=== PATIENT | male | born 1965 | race Asian ===

== ENCOUNTER 2017-12-28 08:18 | Inpatient (IN) | payer OTHER ==
[~2017-12-28] VITALS: Ht 162.6 cm; Wt 79.1 kg
[2017-12-28 08:45] VITALS: BP 132/70
--- NOTE | 2017-12-28 08:45 | NUR ---
MS FARM MANAGEMENT ADVISER NOTE PT ARRIVED TO MS UNIT VIA GURNEY IN STABLE CONDITION ACCOMPANIED BY 2 EMT PERSONNEL. PT IS A/O X4, AFEBRILE. RESPIRATIONS ARE EVEN AND UNLABORED, NOT IN ANY ACUTE DISTRESS NOTED. PUPILS ARE REACTIVE TO LIGHT. BILATERAL HAND CARPET SEWER ARE STRONG AND EQUAL. PT DENIES ANY PAIN AT THIS TIME, NO C/O SOB, N/V NOTED. IV SITE TO LAC INTACT G20, NO INFILTRATION NOTED. DRESSING KEPT CLEAN AND DRY. NO SKIN ISSUES NOTED. ABDOMEN IS TENDER, BOWEL SOUNDS ARE HYPOACTIVE. PT STATED LAST BM WAS YESTERDAY. LAST MEAL WAS LAST NIGHT 1730. PT ABLE TO AMBULATE INDEPENDENTLY. PT SEEN AND EXAMINED BY DR. ROSALES WITH ORDERS NOTED AND CARRIED OUT. INSTRUCTED PT TO USE CALL LIGHT WHEN ASSISTANCE IS NEEDED, CALL LIGHT IS LEFT WITHIN REACH. WILL SAFETY MEASURES ARE IN PLACE. WILL CONTINUE TO MONITOR PT THROUGHOUT SHIFT FOR CONTINUITY OF CARE.
[2017-12-28] MEDS ORDERED: CHOL100044 GT (09:16)
[2017-12-28] MEDS ORDERED: OMEP20TA5 PO (09:16)
[2017-12-28] MEDS ORDERED: ASCO10007 PO (09:16)
[2017-12-28] MEDS ORDERED: OMEG1CAP74 PO (09:16)
[2017-12-28] MEDS ORDERED: LOSA50TA21 PO (09:16)
[2017-12-28] MEDS ORDERED: ACETAMINOPHEN 325 MG TABLET PO PRN (10:30)
[2017-12-28] MEDS ORDERED: MORPHINE SULFATE INJ 2 MG/ML DISP.SYRIN IV PRN (10:30)
[2017-12-28] MEDS ORDERED: ONDANSETRON HCL/PF 4 MG/2 ML VIAL IVP PRN (10:30)
[2017-12-28] MEDS ORDERED: ZOLPIDEM TARTRATE 5 MG TABLET PO PRN (10:30)
[2017-12-28] MEDS ORDERED: Z GUARD REMEDY 2 OZ OINT TP PRN (10:30)
--- NOTE | 2017-12-28 11:13 | NUR ---
RN NOTES PATIENT COMPLAINING OF DIFFICULTY HAVING A BOWL MOVEMENT, OBTAINED ORDER FROM FUR TINTER FOR BISACODYL SUPPOSITORY, PT ABLE TO HAVE A BOWL MOVEMENT AFTER 30 MINUTES.
[2017-12-28 11:26] LABS: BASOPHILS # (AUTO) 0.1 /CMM (0.0-0.2); BASOPHILS % (AUTO) 0.8 % (0.0-2.0); EOSINOPHILS % (AUTO) 2.6 % (0.0-6.0); HEMATOCRIT 42 % (39-51); HEMOGLOBIN 14.2 g/dL (13.5-17.5); LYMPHOCYTES # (AUTO) 3.9 /CMM (0.8-4.8); LYMPHOCYTES % (AUTO) 43.8 % (20.0-44.0); MEAN CORPUSCULAR HGB CONC 34 g/dl (31.0-36.0); MEAN CORPUSCULAR VOLUME 91 fL (80-96); MONOCYTES # (AUTO) 0.7 /CMM (0.1-1.30); MONOCYTES % (AUTO) 8.1 % (2.0-12.0); NEUTROPHILS # (AUTO) 3.9 /CMM (1.8-8.9); NEUTROPHILS % (AUTO) 44.7 % (43.0-81.0); PLATELET COUNT (AUTO) 213 /CMM (150-450); RED BLOOD CELL COUNT(AUTO) 4.66 MIL/uL (4.5-6.0); WHITE BLOOD COUNT (AUTO) 8.8 K/uL (4.3-11.0)
[2017-12-28 11:38] LABS: INR 1.03 (0.87-1.13)
[2017-12-28 11:42] LABS: ALBUMIN 3.1 g/dL (3.4-5.0); BILIRUBIN,TOTAL 0.5 mg/dL (0.2-1.0); CALCIUM, SERUM 8.3 mg/dL (8.5-10.1); CREATININE 0.9 mg/dL (0.6-1.3); TOTAL PROTEIN, SERUM 7.2 g/dL (6.4-8.2)
--- NOTE | 2017-12-28 11:45 | NUR ---
MS RN NOTES-- PT P/U BY RADIOLOGY FOR HIDA SCAN IN STABLE CONDITION VIA WHEELCHAIR.
[2017-12-28] MEDS: PIPERACILLIN /TAZOBACTAM 4.5 G in IV D5W 50 ML IV SCH ×3 (13:13→23:22)
[2017-12-28] MEDS: IV 1/2NS 1000 ML 1,000 ML IV PRN (13:13)
--- NOTE | 2017-12-28 13:15 | NUR ---
MS RN NOTES-- PT CAME BACK IN STABLE CONDITION FROM RADIOLOGY. IV FLUIDS STARTED AND RUNNING @75ML/HR.
--- NOTE | 2017-12-28 13:55 | NUR ---
MS RN NOTES-- PT P/U BY RADIOLOGY AGAIN FOR HIDA SCAN.
--- NOTE | 2017-12-28 14:09 | NUR ---
MS RN NOTES-- PT CAME BACK FROM RADIOLOGY IN STABLE CONDITION.
--- NOTE | 2017-12-28 14:24 | NUR ---
NM:TAJ WAS COMPLETED. TECH:RB.
[2017-12-28 16:00] VITALS: BP 119/76
--- NOTE | 2017-12-28 19:37 | NUR ---
RN MS OPENING NOTES RECEIVED PT IN BED, A/OX4 , BREATHING EVEN AND UNLABORED ON RA,INFUSING NS @ 75ML/HR VIA L AC #20G AND TOLERATING. NO COMPLAINTS OF PAIN OR DISCOMFORT AT THE MOMENT, BED IN LOWEST LOCKED POSITION, CALL LIGHT WITHIN REACH, WILL CONTINUE TO MONITOR.
--- NOTE | 2017-12-28 19:46 | NUR ---
MS RN CLOSING NOTES ALL DUE MEDS GIVEN, NEEDS MET AND ANTICIPATED. PT REMAINS A/O X4, AFEBRILE. RESPIRATIONS ARE EVEN AND UNLABORED, NOT IN ANY ACUTE DISTRESS NOTED. PT DENIES ANY PAIN AT THIS TIME, NO C/O SOB, N/V. PT IS AMBULATORY AND CONTINENT. IV SITE INTACT, NO INFILTRATION NOTED. DRESSING KEPT CLEAN AND DRY. IV FLUIDS CURRENTLY INFUSING AT 75ML/HR, TOLERATING WELL. SAFETY MEASURES ARE IN PLACE. ENDORSED TO NEXT SHIFT FOR CONTINUITY OF CARE. Addendum: 12/29/17 at 0320 by LIOR CONNOR RN *RN OPENING NOTES
[2017-12-28 20:00] VITALS: BP 137/93
--- NOTE | 2017-12-28 21:20 | NUR ---
RN MS NOTES SEEN BY DR. MANRIQUEZ, INFORMED PATIENT THAT CHOLECYSTECTOMY IS NOT AN A MEDICAL EMERGENCY AT THE MOMENT, RECOMMENDED AN ELECTIVE CHOLECYSTECTOMY AT A [facility]
[2017-12-29] MEDS: PIPERACILLIN /TAZOBACTAM 4.5 G in IV D5W 50 ML IV SCH (05:28)
[2017-12-29] MEDS: IV 1/2NS 1000 ML 1,000 ML IV PRN (05:35)
[2017-12-29 06:09] LABS: BASOPHILS # (AUTO) 0.1 /CMM (0.0-0.2); EOSINOPHILS % (AUTO) 4.5 % (0.0-6.0); HEMATOCRIT 46 % (39-51); HEMOGLOBIN 15.6 g/dL (13.5-17.5); LYMPHOCYTES # (AUTO) 2.3 /CMM (0.8-4.8); LYMPHOCYTES % (AUTO) 34.9 % (20.0-44.0); MEAN CORPUSCULAR HGB CONC 34 g/dl (31.0-36.0); MEAN CORPUSCULAR VOLUME 92 fL (80-96); MONOCYTES # (AUTO) 0.6 /CMM (0.1-1.30); MONOCYTES % (AUTO) 9.2 % (2.0-12.0); NEUTROPHILS # (AUTO) 3.3 /CMM (1.8-8.9); NEUTROPHILS % (AUTO) 50.4 % (43.0-81.0); PLATELET COUNT (AUTO) 218 /CMM (150-450); RED BLOOD CELL COUNT(AUTO) 5.04 MIL/uL (4.5-6.0); WHITE BLOOD COUNT (AUTO) 6.6 K/uL (4.3-11.0)
[2017-12-29 06:17] LABS: ALBUMIN 3.3 g/dL (3.4-5.0); BILIRUBIN,TOTAL 0.7 mg/dL (0.2-1.0); CALCIUM, SERUM 8.6 mg/dL (8.5-10.1); MAGNESIUM 2.1 mg/dL (1.8-2.4); PHOSPHORUS 4.2 mg/dL (2.5-4.9); POTASSIUM 4.1 mmol/L (3.5-5.1); TOTAL PROTEIN, SERUM 7.8 g/dL (6.4-8.2)
--- NOTE | 2017-12-29 06:35 | NUR ---
RN MS CLOSING NOTES PT IN BED, AWAKE, A/OX4, ACCOMPANIED BY , BREATHING EVEN AND UNLABORED, MRSA SWAB DONE AND SENT TO LAB. NO COMPLAINT OF PAIN RO DISCOMFORT, RECEIVING IV FLUIDS (1/2 NS @75ML/HR) VIA L AC #20G PATENT AND FLUSHING. BED IN LOWEST LOCKED POSITION, CALL LIGHT WITHIN REACH AT ALL TIMES, NO SIGNIFICANT CHANGE DURING SHIFT, WILL ENDORSE TO DAY NURSE FOR ALEJANDRA.
--- NOTE | 2017-12-29 07:50 | NUR ---
m/s environmental health safety engineer: md visit seen and examined by dr. jimenez at this time. pt for d'c home today or tomorrow per md. pt aware. awaiting order. continue on ivf, infusing well. pain is controlled. denies n/v or any abdominal discomfort. pt tolerated diet. instructed to call for assistance. will continue to monitor.
[2017-12-29 08:00] VITALS: BP 133/77
--- NOTE | 2017-12-29 10:00 | NUR ---
m/s piping blocker: notes here and wants pt discharge soon and will f/u today with their primary doctor at [facility] [place]. dr. jimenez notified and made aware and will write prescription and will d'c home today. awaiting order. pt and made aware. iv h/l at this time. will continue to monitor.
--- NOTE | 2017-12-29 10:15 | NUR ---
m/s talend developer: notes received order from dr. jimenez to d'c [place] with instructions to Follow up with PCP for outpatient elective cholecystectomy. order acknowledged.
--- NOTE | 2017-12-29 10:30 | NUR ---
m/s screedman: d'c instructions discharged instructions with prescriptions given to pt and verbalized understanding. pt will f/u with pcp today as stated. educated pt on antibiotics use and side effects, pt verbalized understanding. h/l removed with tip intact. pt getting ready and refused w/c when offered.
--- NOTE | 2017-12-29 10:50 | NUR ---
m/s manufacturing engineering professor: discharged discharged home accompanied by via private car in stable condition.
== END 2017-12-29 10:20 | disposition home or self-care (01) ==
LOC: MED 08:18
PROVIDERS: ADMIT Nurse Practitioner Acute Care; ATTEND Nurse Practitioner Acute Care
DX: K80.00 Calculus of gallbladder with acute cholecystitis without obstruction (principal); I10 Essential (primary) hypertension; K80.10 Calculus of gallbladder with chronic cholecystitis without obstruction; Z79.899 Other long term (current) drug therapy
CPT/HCPCS: 36415; 78226; 80053-TC; 80061-TC; 80074; 83690-TC; 83735-TC; 84100-TC; 85025-TC; 85730-TC; 87081-TC; A9537; G0378; J2543; J3490; J7060; Z7610